=== PATIENT | male | born 1975 | race African-American/Black ===

== ENCOUNTER 2017-08-08 12:11 | Emergency (ER) | payer SELFPAY ==
[~2017-08-08] VITALS: Ht 188 cm; Wt 100.0 kg
[2017-08-08 12:19] VITALS: BP 174/95; PULSE 79; RESP 18; TEMP 98.3; O2SAT 99
[2017-08-08] MEDS ORDERED: NORC5TAB PO (12:48)
[2017-08-08] MEDS ORDERED: CYCL10TA PO (12:48)
--- NOTE | 2017-08-08 12:51 | PD ---
HPI . Back pain Chief Complaint: Back/ Neck Pain or Injury Time Seen by Provider: 12:33 Travel History International Travel<30 days: No Contact w/Intl Traveler<30days: No Traveled to known affect area: No History of Present Illness HPI Patient presents with low back pain. Onset was 2 weeks ago. Pain is exacerbated by certain positions. Pain is rated 7/10. He denies any concerning symptoms such as fever, saddle anesthesia, overflow incontinence, leg weakness or leg pain. PFSH Past Medical History Diminished Hearing: Yes (RIGHT EAR.) Social History Alcohol Use: Yes (SOCIALLY) Tobacco Use: Yes Allergies-Medications (Allergen,Severity, Reaction): Coded Allergies: No Known Allergies (Verified Allergy, Mild, 12/22/06) Reported Meds & Prescriptions Reported Meds & Active Scripts Active Flexeril (Cyclobenzaprine HCl) 10 Mg Tab 10 Mg PO TID [place] (Hydrocodone-Acetaminophen) 5 Mg-325 Mg Tab 1 Tab PO Q4H PRN Review of Systems Except as stated in HPI: all other systems reviewed are Neg Physical Exam Narrative GENERAL: Awake and alert and in no acute distress. SKIN: Warm and dry. HEAD: Normocephalic/atraumatic. EYES: Pupils are equal. Extraocular movements are intact. NECK: Normal range of motion. CARDIOVASCULAR: Regular rate and rhythm. RESPIRATORY: Nonlabored respirations. MUSCULOSKELETAL: Diffuse, mild tenderness to palpation of the low back. No point tenderness. Distally neurovascularly intact. NEUROLOGICAL: Nonfocal. PSYCHIATRIC: Appropriate mood and affect. Data Data Last Documented VS Vital Signs Date Time Temp Pulse Resp B/P (MAP) Pulse Ox O2 Delivery O2 Flow Rate FiO2 08/08/17 12:19 98.3 79 18 174/95 (121) 99 Orders Orders Ed Discharge Order (08/08/17 12:48) [facility] Medical Decision Making Medical Screen Exam Complete: Yes Emergency Medical Condition: Yes Differential Diagnosis Differential diagnosis includes but is not limited to muscular low back pain, DDD, spinal stenosis, epidural abscess, sciatica, kidney infection or stone. Narrative Course Patient presents complaining with back pain. Onset was a couple weeks ago. He has no concerning historical or physical exam findings. He will be discharged home with prescriptions for [place] and Flexeril. E [place] was queried and reviewed. Diagnosis Primary Impression: Low back pain Qualified Codes: M54.5 - Low back pain Patient Instructions: General Instructions, Back Pain (ED) Departure Forms: Tests/Procedures Scripts Cyclobenzaprine (Flexeril) 10 Mg Tab 10 MG PO TID for Muscle Spasm, #30 TAB 0 Refills Prov: Lisseth Bergeron MD 08/08/17 Hydrocodone-Acetaminophen ([place]) 5 Mg-325 Mg Tab 1 TAB PO Q4H Y for PAIN, #12 TAB 0 Refills Prov: Lisseth Bergeron MD 08/08/17 Disposition: 01 DISCHARGE HOME Condition: Stable Lisseth Bergeron MD August 08, 2017 12:51
== END 2017-08-08 13:14 | disposition home or self-care (01) ==
LOC: NEPD 12:11
DX: M54.5 Low back pain (principal); Z72.0 Tobacco use
CPT/HCPCS: 99283